=== PATIENT | female | born 1940 | race Caucasian/White ===

== ENCOUNTER 2016-12-30 15:19 | Inpatient (IN) | payer MEDICARE, BC ==
[~2016-12-30] VITALS: Ht 162.6 cm; Wt 86.8 kg
--- NOTE | ~2016-12-30 | ER ---
PATIENT'S NAME: JOE DAVE [facility] AGE: 76 Y [address] ROOM: [place] [address] LOCATION: GPCU ADMIT DATE: 12/30/2016 ER/Outpatient Report DISCHARGE DATE: FAMILY PHYSICIAN: Anita Valle MD ATTENDING PHYSICIAN: WILLIAM QUIGLEY TIME OF ARRIVAL: 1525 hours. TIME OF EVALUATION: 1525 hours. CHIEF COMPLAINT: Fall, weakness, slurred speech, chest pain. HISTORY OF PRESENT ILLNESS: The patient is a 76-year-old female who presents to the emergency department today with chief complaint of fall, weakness, slurred speech, and chest pain. She reports the slurred speech has been going on for 2-3 days. The patient denies any fevers or chills. No shortness of breath. No cough. The patient did have chest pain on the left side of her chest. There is no radiation this morning. She denies any current pain at this time. Does report pain in both of her legs and hips that radiates down. Does report some nausea. No vomiting. No diarrhea. Does have a little headache. She has had a fall 3 days ago. No fall today, no loss of consciousness, no head injury that she reports. Denies any abdominal pain. PAST MEDICAL HISTORY: Dyslipidemia, type 2 diabetes, hypertension, osteoarthritis, TIA. PAST SURGICAL HISTORY: Hysterectomy. SOCIAL HISTORY: The patient quit smoking 12 years ago. Denies any alcohol or illicit drug use. ALLERGIES: NO KNOWN DRUG ALLERGIES. MEDICATIONS: Please see list. PRIMARY CARE DOCTORS: Anita Valle MD, in [place]. PATIENT'S NAME: JOE DAVE [facility] AGE: 76 Y [address] ROOM: [place] [address] LOCATION: GPCU ADMIT DATE: 12/30/2016 ER/Outpatient Report DISCHARGE DATE: FAMILY PHYSICIAN: Anita Valle MD ATTENDING PHYSICIAN: WILLIAM QUIGLEY REVIEW OF SYSTEMS: All systems are reviewed by myself and negative with the exception of those discussed in HPI and past medical history. PHYSICAL EXAMINATION: VITAL SIGNS: Weight 88 kg. Blood pressure 139/67, pulse 80, respiratory rate 20, temperature 98.5, oxygen saturation 95% on room air. GENERAL: The patient is a 76-year-old female who appears of stated age, in no acute distress at this time. HEENT. Head is normocephalic and atraumatic. Pupils are equal, round, and reactive to light. NECK: Supple. There is no nuchal rigidity. CARDIOVASCULAR: Regular rate and rhythm. No murmurs, rubs, or gallops. LUNGS: Clear to auscultation bilaterally. No wheezes, rales, or rhonchi. ABDOMEN: Soft, nontender, and nondistended. No rebound, rigidity, or guarding. MUSCULOSKELETAL: The patient moves all 4 extremities. 5/5 muscle strength. NEUROLOGICAL: GCS 15. She is alert. She is oriented to person, somewhat to place, she does not know in which city she is, but does she know is in a hospital. She is not oriented to time or month. Downward going toes. No clonus. 2/4 reflexes. Equal sas architect strength bilaterally. No pronator drift. No facial asymmetry. Normal tongue motion. Extraocular motions are intact. SKIN: Warm and dry. LABORATORY DATA AND X-RAYS: Labs and x-rays are obtained. EKG is obtained, interpreted by myself at 1547 hours. It does show sinus rhythm with a rate of 80, normal axis, normal intervals. There does appear to be 0.[address] depression in V2, V3, V4. There is some nonspecific T-wave flattening laterally. Urinalysis shows a 1000 glucose, 25 leukocyte esterase, 30 protein, 15 ketones, otherwise unremarkable. Lactate is 1.7. CBC is unremarkable. Coags are normal. Procalcitonin is less than 0.05. ProBNP is normal. CMP is unremarkable. LFTs normal. CK is normal. CK-MB is normal. Troponin 0.069, free T4 is normal. TSH is normal. IMPRESSION: 1. Non-ST segment elevation myocardial infarction. 2. Slurred speech with history of transient ischemic attack. 3. Vgc-tmfrfis-foxveotmu diabetes mellitus. 4. Initial visit. EMERGENCY DEPARTMENT COURSE: The patient brought back to the examination room. Seen and evaluated by myself. IV is established. Laboratory analysis and imaging are obtained as PATIENT'S NAME: JOE DAVE [facility] AGE: 76 Y [address] ROOM: [facility] [place], [place] [address] [facility] AD[facility] DATE: 12/30/2016 ER/Outpatient Report DISCHARGE DATE: FAMILY PHYSICIAN: Anita Valle MD ATTENDING PHYSICIAN: WILLIAM QUIGLEY described above. The patient is given a liter of normal saline IV. The results are obtained. The patient is given aspirin as well started on heparin protocol. I have discussed the case with Dr. Quigley. He does agree to accept the patient for further evaluation, treatment, and management. DISPOSITION: The patient is admitted under the care of the Hospitalist Service in stable condition. DO BIBI PALM/modl /[id number] d: 12/30/160 t: 12/31/16 0759, OUTPATIENT REPORT
--- NOTE | ~2016-12-30 | CON ---
PATIENT'S NAME: JOE DAVE [facility] AGE: 76 Y [address] ROOM: [id number] [place], [place] [address] LOCATION: GPCU ADMIT DATE: 12/30/2016 Consultation DISCHARGE DATE: FAMILY PHYSICIAN: Anita Valle MD ATTENDING PHYSICIAN: WILLIAM REDD REFERRING PHYSICIAN: LISSET ANDINO MD This is a patient of Dr. Lucia. Dear Dr. Lucia: Thank you for asking me to see Ms Ewa who is a 76-year-old female patient who was hospitalized on the night of 30 December 2016 with fall, weakness, slurred speech, and chest discomfort. There was also a certain element of confusion which seemed to be clearing up. In the meantime, she had been complaining a lot about her low back pain and appears to have some clusters of skin lesions consistent with possibly herpes zoster. Since spring, she has had a few falls. She lives with her in [place], [place]. She was up here for shopping when she felt really bad according to her, and she was brought to the emergency room, for where she was hospitalized. 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 On directly questioning, she admits to having a few episodes of chest pains over the last few months and she states that they feel like a discomfort and ache and she is not able to give a lot more information. They seem to last only for a minute or two at the most and spontaneously resolved. She denies having any shortness of breath. She has no history of paroxysmal nocturnal dyspnea or orthopnea. Apparently, she has been in functional class II. There is no history of lightheadedness, dizziness, syncope, presyncope, palpitations, or ankle swelling. The patient has history of hypertension, type 2 diabetes, and elevated cholesterol. She quit smoking years ago and there is no family history of premature coronary artery disease. The patient denies prior history of WA or angina or nitroglycerin use. She has no history of rheumatic fever, heart murmur, heart failure, dilated or enlarged heart, or any diagnosed cardiac arrhythmias. Her EKGs enzymes and enzymes were followed after admission and she appears to have had a vgt-PP-lpoqltp elevation WA based on the troponins and the fact that she had a complaint of having some chest pain at the time of admission. She is currently oriented x2 and her history is probably reasonably accurate PATIENT'S NAME: JOE DAVE [facility] AGE: 76 Y [address] ROOM: [place] [address] LOCATION: GPCU ADMIT DATE: 12/30/2016 Consultation DISCHARGE DATE: FAMILY PHYSICIAN: Anita Valle MD ATTENDING PHYSICIAN: WILLIAM REDD at this time. MEDICATIONS: 1. Jardiance 25 mg a day. 2. Losartan/hydrochlorothiazide 50 mg every morning. 3. Amlodipine 5 mg every morning. 4. Levothyroxine 150 mcg once a day. 5. Glimepiride 4 mg b.i.d. 6. Pravastatin 80 mg at bedtime. 7. Aspirin 81 mg a day. 8. MiraLAX. 9. Colace 100 mg a day. 10. Acetaminophen. ALLERGIES: HEPARIN WHICH CAUSES HIVES. PAST MEDICAL HISTORY: 1. History of DJD. 2. TIA. 3. Hysterectomy for apparently cancer. 4. Knee surgery. SOCIAL HISTORY: The patient denies abusing alcohol. Her appetite and weight are stable. Sleep is poor. FAMILY HISTORY: No premature coronary artery disease. REVIEW OF SYSTEMS: 12-point review of systems revealed corrective lenses and DJD. PHYSICAL EXAMINATION: GENERAL: The patient is now in no acute distress. Awake, alert, oriented x2. Appropriate and cooperative. VITAL SIGNS: Blood pressure is 180/80, heart rate is in the 80s and regular, respirations 18, afebrile. HEENT: Normal. NECK: Supple with no JVD, thyromegaly, lymphadenopathy, or carotid bruit. HEART: PMI is not well located. First and second heart sounds are regular. There are no added some sounds or murmurs. CHEST: Clear to auscultation. ABDOMEN: Soft. EXTREMITIES: Reveal no edema. PATIENT'S NAME: JOE DAVE [facility] AGE: 76 Y [address] ROOM: [place] [address] LOCATION: GPCU ADMIT DATE: 12/30/2016 Consultation DISCHARGE DATE: FAMILY PHYSICIAN: Anita Valle MD ATTENDING PHYSICIAN: WILLIAM REDD SKIN: She does have the skin lesions mostly over the sacral area and to the left of it. CENTRAL NERVOUS SYSTEM: Appears to be overall intact. ASSESSMENT: A 76-year-old female patient, admitted with confusion, falls, weakness, slurred speech, and some chest pain. Her EKG showed no acute ST-T changes. However, her enzymes especially her troponin seemed to be slightly up. The possibility of lsk-NP-gfwnekv elevation WA cannot be ruled out. Given her what appears to be current herpes zoster, I would not feel comfortable doing a stress test or cardiac catheterization at this time. However this may be something where we can evaluate her coronaries with a coronary CT angiogram, if we can slow her heart beat down to about 60s. We will attempt to do that with beta blockers right now, and then once her heart rate is in the 60s, we will consider proceeding ahead with CT coronary angiography. Again, I appreciate this opportunity to participate in the care of Ms Dvae. MD DYAN JIMENEZ/kody /[id number] d: 01/01/17 1125 t: 01/02/17 1209, CONSULTATION REPORT
--- NOTE | ~2016-12-30 | ECHO ---
Transthoracic Echocardiography Report (TTE) Demographics Patient Name JOE DAVE Date of Study 12/31/2016 Patient Number [id number] Visit Number [id number] Date of 1940 Room Number [address]6329 Gender Female Number Age 76 year(s) Referring Tori Hernández MD Mortar Worker Nyasia Rivas [facility], Physician RVT Physician Interpreting Vidal Lemus[employer] Message And Delivery Service Pricer Physician Supervising Ordering [facility] Simone LEAL/MLP Physician Nurse Stress Cost Engineer Conclusions Summary The estimated left ventricular ejection fraction is 55-60%. Moderate concentric left ventricular hypertrophy. Diastolic assessment reveals Grade I diastolic dysfunction. Normal right ventricle structure and function. The left atrium is moderately dilated by LA volume index measurement. Mild tricuspid regurgitation by color Doppler. The tricuspid valve is not well visualized. Procedure Type of Study TTE procedure:2D Echocardiogram. Procedure Date Date: 12/31/2016 Start: 08:42 AM Study Location: Mobile Services Technical Quality: Adequate visualization Indications:Chest pain. Appropriate Use Criteria: 9 Patient Status: Routine Rhythm: Within normal limits HR: 75 bpm BP: 183/77 mmHg M-Mode/2D Measurements LV Diastolic Dimension: 4.55 cm LV Systolic Dimension: 2.57 cm LV Septum Diastolic: 1.49 cm LV PW Diastolic: 1.39 cm AO Root Dimension: 2 cm Cardiac Output: 7.47 l/min LA Dimension: 3.9 cm IVC Inspiration: 0.59 cm LVOT: 2.2 cm RV Base: 3.33 cm LVOT VTI: 26.2 cm RV Mid: 2.17 cm LV Stroke volume: 99.54 ml TAPSE: 1.93 cm TDI-S': 19 cm/s Doppler Measurements AV Peak Velocity: 1.48 m/s MV Peak E-Wave: 0.86 m/s AV Peak Gradient: 8.76 mmHg MV Peak A-Wave: 1.19 m/s AV Mean Gradient: 5 mmHg MV E/A Ratio: 0.73 LVOT Peak Velocity: 0.93 m/s MV P1/2t: 65 msec PV Peak Velocity: 1.01 m/s E' Septal Velocity: 0.05 m/s PV Peak Gradient: 4.08 mmHg MV E/E' Ratio: 18.9 A' Septal Velocity: 0.09 m/s Findings Left Ventricle Moderate concentric left ventricular hypertrophy. Diastolic assessment reveals Grade I diastolic dysfunction. Right Ventricle Normal right ventricle structure and function. Left Atrium The left atrium is moderately dilated by LA volume index measurement. Right Atrium Normal right atrial size. Mitral Valve Mild mitral regurgitation by color Doppler. Aortic Valve The aortic valve is mildly sclerotic. Tricuspid Valve Mild tricuspid regurgitation by color Doppler. The tricuspid valve is not well visualized. Pulmonic Valve The pulmonic valve is not well visualized. Miscellaneous Visualized portions of the aortic root and ascending aorta appear normal in size. Pleural Effusion No evidence of pleural effusion. Signature dtt: PASCUAL BRODY dtd: 12/31/16 0842 Physician Self Edit
--- NOTE | ~2016-12-30 | OR ---
PATIENT'S NAME: JOE DAVE [facility] AGE: 76 Y [address] ROOM: [place] [address] LOCATION: GPCU ADMIT DATE: 12/30/2016 OR/Procedure Report DISCHARGE DATE: FAMILY PHYSICIAN: Anita Valle MD ATTENDING PHYSICIAN: WILLIAM REDD SURGEON: Argelia Gomez MD TURNAROUND ENGINEER: DATE OF PROCEDURE: 01/01/2017 PROCEDURE PERFORMED: Coronary CT angiography. INDICATION: 1. Atypical chest pain. 2. Elevated troponins. 3. The patient has now shingles. I did not want her to have a stress test or any invasive test at this point, so a coronary CT angiogram was performed to look and see if she has any significant left main disease or proximal coronary artery disease. DESCRIPTION OF PROCEDURE: Coronary artery calcium scoring with a 64-slice coronary CT scanner, coronary artery calcium scoring was done per protocol. The calcium scoring was done according to standardized protocol using a 3D workstation. Left main 94, LAD 455, left circumflex 607, RCA 1109, ramus intermedius 8, total 2273. Coronary artery angiography was performed utilizing the standardized protocol. The coronaries were evaluated using a 3D workstation. 1. Left main, ostial 25%. 2. LAD proximally has about a 50% to 70% lesion. Mid LAD has 70% lesion. Diagonal has 70% lesion. Left circumflex shows moderate diffuse disease in its midportion, has 80% to 90% lesion. 3. Mid right coronary artery has 70% lesion and distally there is an 80% lesion. CONCLUSION: All three vessels show at least moderate diffuse disease. ARGELIA GOMEZ MD AMK/modl PATIENT'S NAME: JOE DAVE [facility] AGE: 76 Y [address] ROOM: [place] [address] LOCATION: GPCU ADMIT DATE: 12/30/2016 OR/Procedure Report DISCHARGE DATE: FAMILY PHYSICIAN: Anita Valle MD ATTENDING PHYSICIAN: WILLIAM REDD /[id number] d: 01/01/17 2259 t: 01/02/17 1211, OPERATIVE SUMMARY
--- NOTE | ~2016-12-30 | CON ---
PATIENT'S NAME: JOE DAVE [facility] AGE: 76 Y [address] ROOM: [address] [place], [place] [address] LOCATION: GPCU ADMIT DATE: 12/30/2016 Consultation DISCHARGE DATE: FAMILY PHYSICIAN: Anita Valle MD ATTENDING PHYSICIAN: WILLIAM REDD DATE OF CONSULTATION: 12/31/2016 REFERRING PHYSICIAN: LISSET ANDINO MD TIME: 17:05 p.m. CHIEF COMPLAINT: Fall. HISTORY OF PRESENT ILLNESS: This is a 76-year-old female who presents to the hospital with a variety of symptoms. Her prior medical history includes type 2 diabetes, hypertension, and a left posterior frontal stroke which occurred in June of 2016. She was in [place] at the [facility], having a hysterectomy for stage I endometrial carcinoma, and after surgery, she could not use her right arm. She was worked up for stroke at that time. Her stroke recovery has been quite well and she has been able to ambulate without any assistance except when she gets tired and then she noticed some right arm ataxia and has to use a cane. In further questioning of her family, but by the end of the day, she does have some word finding issues and does not complete her sentences. During the week of December 23, she had a fall in the garden and had to drag herself over to the fence to stand up. She has nonspecific complaints of back pain and went to her local doctor on December 28 and he diagnosed her as having sciatica and sent her home. She again fell and was having trouble with confusion, so she presented to her local hospital who transferred her here for further definitive care. According to the , the patient states she was having pain when she was standing up. She has denied any dizziness, lightheadedness, shortness of breath, diaphoresis, nausea, vomiting, diarrhea, or constipation. She has had no fever or chills, nor has she had any ill contacts. Last night, the patient woke up confused and slightly combative, so an MRI was obtained. In order to get this MRI, there was 2 mg of Ativan given. Haldol was ordered, but the patient cleared somewhat, so they did not give it. Today, we are seeing her to evaluate for the weakness and also her confusion. PAST MEDICAL HISTORY: 1. Left posterior frontal CVA in June 2016. 2. Diabetes type 2. 3. Hypertension. PATIENT'S NAME: JOE DAVE [facility] AGE: 76 Y [address] ROOM: [address] [place], [place] [address] LOCATION: GPCU ADMIT DATE: 12/30/2016 Consultation DISCHARGE DATE: FAMILY PHYSICIAN: Anita Valle MD ATTENDING PHYSICIAN: WILLIAM REDD FAMILY HISTORY: The patient has a history of diabetes in her mother. SOCIAL HISTORY: The patient has a remote smoking history, but quit over 25 years ago. She does not use alcohol or drugs. REVIEW OF SYSTEMS: All systems were reviewed and are negative except as those described in the HPI. PHYSICAL EXAMINATION: VITAL SIGNS: Blood pressure is 139/64, pulse 82, respiratory rate 18, temperature 98.2. She is 95% on room air. GENERAL: The patient is awake and oriented x2. She is in no acute distress. She is well nourished, and well groomed. HEENT: Normocephalic and atraumatic. SKIN: No rashes noted. CHEST: Clear to auscultation bilaterally. HEART: S1 and S2. NEURO: Difficult to examine because of the patient's lack of wanting to follow commands. She knows her name and how long she has been and everyone's name in the room, but she cannot tell me the year. Following commands such as raising of thumb are very difficult for her, this may be due to somewhat to her lack of hearing, but she is able to follow commands with prompting. Her power is 5/5 uppers and lowers. She has good dorsiflexion and plantar flexion strength. Her muscle tone and bulk are excellent. I did see her walk with a walker and it is a 2-assist job. No radiculopathy was elicited with straight leg raise. Deep tendon reflexes are 2+. DIAGNOSTICS: An MRI that was completed last night is definitely altered by motion. However, there is no evidence of any acute intracranial abnormality. There is the old left posterior frontal stroke. Her initial urinalysis did show some hyaline casts, and a leukocyte count of 25. Of course, there was glucose in it but the patient is on Jardiance. Ketones of 15 mg/dL. We are waiting for the UA to be repeated for catheterization. Her white count is 7.7, with neutrophils making up 79% of that. Hemoglobin is 15.2 and hematocrit 43.9. SUMMARY: In summary, this is a 76-year-old female who presents with confusion and complaints of leg weakness and pain. 1. Acute encephalopathy. The encephalopathy could be certainly multifactorial. The patient did have a temp of 102.5 last night. She PATIENT'S NAME: JOE DAVE [facility] AGE: 76 Y [address] ROOM: [address] [place] [address] [facility]: 12/30/2016 Consultation DISCHARGE DATE: FAMILY PHYSICIAN: Anita Valle MD ATTENDING PHYSICIAN: WILLIAM REDD also could be demonstrating recrudescence of her stroke and that would certainly make her more confused and have difficulty with her word finding. The MRI thankfully is negative for any new processes. 2. Acute delirium. The patient awoke last night, even more confused. That seems to be reversing somewhat now. She is still sleepy from the 2 mg of Ativan. We would recommend serial exams to follow up with this. 3. Pain. Difficult to elicit exactly where her pain is. Since she has had falls and is on the Jardiance, would recommend imaging to check for a possible compression fractures. Thank you for the opportunity to participate in this patient's care. If you have any questions, please notify us. NIKKI UMAÑA APRN FOR LISSET ANDINO MD PP/modl /[id number] d: 01/01/17 1403 t: 01/22/17 1620, CONSULTATION REPORT
--- NOTE | ~2016-12-30 | DS ---
PATIENT'S NAME: JOE DAVE [facility] AGE: 76 Y [address] ROOM: [facility] [place] [address] LOCATION: GPCU ADMIT DATE: 12/30/2016 Discharge Summary DISCHARGE DATE: 01/02/2017 FAMILY PHYSICIAN: Anita Valle MD ATTENDING PHYSICIAN: Simone Quigley PRINCIPAL DISCHARGE DIAGNOSIS: Non ST-elevation myocardial infarction. SECONDARY DIAGNOSES: 1. Acute encephalopathy, multifactorial probably related to medication, hypertension and possibly Herpes zoster infection. 2. Hypertension, severe. 3. Cerebrovascular disease. 4. Herpes zoster. She developed lesions from a mild erythema, which was noted on the morning following admission and developed into herpetic rash within 24 hours of admission. 5. Diabetes mellitus, type 2, good control with A1c of 7.7. 6. Coronary artery disease, diffuse. 7. Hypothyroidism. 8. Hypertriglyceridemia, on statin. 9. Mild diabetic peripheral neuropathy. CONSULTATIONS: Cardiology, Dr. Bright on 12/31/2016. RADIOGRAPHIC STUDIES: CT angiogram on 01/01/2017. Please see Dr. Bright's cardiovascular report, which is pending at the time of my dictation. Echocardiogram. Brief summary of findings showed left ventricular ejection fraction 55% to 60%, grade 1 diastolic dysfunction, mildly dilated left atrium. MRI of the brain showed [id number] chronic small vessel ischemic changes, moderate atrophy, old small left posterofrontal lacunar infarction. BRIEF SUMMARY: Ms. Dave is a 76-year-old female who was doing well until a few days prior to admission when she started having some falls and increased weakness in her lower extremity. She was complaining of some generalized pain in her lower extremities. Her was concerned and thought that he would bring her to [place] for thorough evaluation. When she arrived here, she also complained of some chest tightness and discomfort. Her troponins were noted to be slightly elevated at that time, she was admitted for observation initially. She developed some acute confusion. We placed her on stroke protocol. The PATIENT'S NAME: JOE DAVE [facility] AGE: 76 Y [address] ROOM: [facility] [place] [address] LOCATION: GPCU ADMIT DATE: 12/30/2016 Discharge Summary DISCHARGE DATE: 01/02/2017 FAMILY PHYSICIAN: Anita Valle MD ATTENDING PHYSICIAN: Simone Quigley imaging was negative as above. She did get some medications, which probably worsened acute confusional state, but her mental status cleared once these medications were held. Troponin continued to rise, although only marginally and she was placed on anticoagulation, aspirin, and Dr. Bright was consulted. At the same time, a mild erythematous rash on her sacrum which was noted by the nurse on the morning of the developed into vesicular rash in a dermatomal distribution and she was started on Valtrex on the evening of the . The patient subsequently as her mental status cleared, was completely unaware of the rash and the pain that she had there was vague and not necessarily burning or typical of zoster. She will complete a seven-day course of valacyclovir for this. Further imaging to evaluate her heart disease when catheterization was deferred because of herpes zoster shows diffuse coronary artery disease. Dr. Bright has opted for medical management in the next 10 days and she will come back for cardiac catheterization on January 14. Her blood pressure was a significant issue and she is on multiple medications at admission but we added beta ritika and we will increase the dose of her losartan with hydrochlorothiazide. She is quite well appearing today. She and her agree with discharge plan. At the time of discharge, her vital signs are temperature 98.2, pulse 85, respirations 18, blood pressure 119/56, her oxygen saturation is 94% on room air. INSTRUCTIONS AT DISCHARGE: [place] [employer], [place] [employer] diets, low carb. Activity: As tolerated. Followup: Follow up should be with her PCP by Saturday January 07, 2017. Dr. Bright in 2 weeks. She should have a CBC and complete metabolic panel prior to the appointment. She should have outpatient therapy with PT/OT and speech. MEDICATIONS AT THE TIME OF DISCHARGE: 1. Amlodipine 5 mg p.o. every night. 2. Aspirin 81 mg p.o. every day. 3. Atorvastatin 40 mg every night. 4. We will replace pravastatin. 5. Plavix 75 mg p.o. daily. PATIENT'S NAME: JOE DAVE [facility] AGE: 76 Y [address] ROOM: [address] [address] [facility] ADMIT DATE: 12/30/2016 Discharge Summary DISCHARGE DATE: 01/02/2017 FAMILY PHYSICIAN: Anita Valle MD ATTENDING PHYSICIAN: Simone Quigley 6. Gabapentin 100 mg p.o. t.i.d. as needed for herpetic neuralgia. 7. Levothyroxine 150 mcg p.o. daily. 8. Losartan/hydrochlorothiazide 50/12.5 two tabs every morning. 9. Valacyclovir 1 g t.i.d. to continue through a dose on 01/07. 10. Tylenol p.r.n. She is instructed to hold Jardiance indefinitely, hold metformin through 01/05 and she can resume glimepiride 4 mg p.o. b.i.d. before meals. MiraLax daily, Colace daily as needed, Lopressor 25 mg p.o. b.i.d. CONDITION AT DISCHARGE: Good. SHANNON HILARIO MD LM/modl /[id number] CC: MD Anita Lock MD d: 01/03/17 0036 t: 01/04/17 1858, DISCHARGE SUMMARY
--- NOTE | ~2016-12-30 | CON ---
PATIENT'S NAME: JOE DAVE [facility] AGE: 76 Y [address] ROOM: [id number] [place] [id number] LOCATION: GPCU ADMIT DATE: 12/30/2016 Consultation DISCHARGE DATE: FAMILY PHYSICIAN: Anita Valle MD ATTENDING PHYSICIAN: WILLIAM REDD REFERRING PHYSICIAN: LISSET ANDINO MD Consult for Dr. Lucia. HISTORY OF PRESENT ILLNESS: This pleasant, but confused, 76-year-old lady who is referred for rehab evaluation was admitted on 12/30 with weakness in bilateral lower extremities, a little more affected to the right side, with confusion of recent few days. 1. Has extensive medical history of falling. 2. 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 3. Also, history of diabetes type 2. 4. Hypertension. 5. She also is now presenting herself as not very tolerant to activity. Denied any shortness of breath, no chest pain, no tachycardia; however, she is reportedly falling and so far has not hit her head or hurt herself seriously. She is not having any dizziness, no lightheadedness, no shortness of breath, no diaphoresis, no nausea or vomiting. No cough, fever, and palpitation. MEDICAL HISTORY: 1. Questionable CVA with right-sided minimal weakness, residual. 2. Diabetes type 2. 3. Hypertension. 4. Remote history of smoking about 25 years ago. PHYSICAL EXAMINATION: She is now alert, not oriented to place, person, and time. She has no facial droop, no visual neglect. Tongue and soft palate are moving symmetrical. She can swallow without difficulty. She can move all four. Cranial nerves 2 through 12 are within normal limits. Deep tendons reflexes are present and equal throughout. So far, she can remember easily old issues like, for example, her address but she cannot remember who is the president, where is she now, or what is the date and what is the time. She is however able to be re-directed, but soon she forgets. MEDICATIONS: She is on: 1. Lovenox. 2. Aggrenox. 3. Insulin NovoLog, mild scale. 4. Tylenol. PATIENT'S NAME: JOE DAVE [facility] AGE: 76 Y [address] ROOM: [id number] [place], [place] [address] LOCATION: GPCU ADMIT DATE: 12/30/2016 Consultation DISCHARGE DATE: FAMILY PHYSICIAN: Anita Valle MD ATTENDING PHYSICIAN: WILLIAM REDD 5. Hyzaar. 6. Aspirin. 7. Norvasc. 8. Protonix. 9. Levothyroxine. 10. Lipitor. 11. Pravachol. 12. MiraLAX. 13. Colace. 14. NaCl 0.9%. 15. Catapres. 16. Glucagon. 17. Glucose. 18. Dextrose. 19. KCl. 20. Metformin. 21. Glimepiride. 22. Elavil. 23. Haldol. PLAN: Put on intensive PT, OT, Speech and we will watch. If she cannot be discharged to home and able to be managed with her , we will re- evaluate for rehab admission. So far, she can move bilateral upper and lower extremities fairly well. However, she is unsteady and she is fearful of falling. We will continue to follow alongside with you. Thank you for this referral. MD RODERICK DEE/kody /[id number] d: 12/31/16 2103 t: 01/01/17 1129, CONSULTATION REPORT
--- NOTE | ~2016-12-30 | HP ---
PATIENT'S NAME: JOE DAVE [facility] AGE: 76 Y [address] ROOM: [place] [address] LOCATION: GPCU ADMIT DATE: 12/30/2016 History & Physical DISCHARGE DATE: FAMILY PHYSICIAN: Anita Valle MD ATTENDING PHYSICIAN: WILLIAM REDD DATE OF SERVICE: CHIEF COMPLAINT: Chest pain. HISTORY OF PRESENT ILLNESS: This is a 76-year-old female with a history of recent TIA and stroke with residual minimal right-sided weakness, type 2 diabetes, hypertension, who presents with complaints of worsening lower extremity weakness, physical deconditioning leading to a few falls over the past few days as well as some chest tightness and discomfort. The patient tells me that she has had hysterectomy done in June of this year for stage I endometrial carcinoma, and shortly following that she had a TIA versus stroke during that time but has done well in physical therapy and medications. The patient, however, over the last week or so describes overall physical deconditioning and worsening pain in her bilateral lower extremities, and it is preventing her from maintaining balance and causing her falls. The patient also complains of a 1- day history of chest discomfort. Does not particularly describe chest pain to be related to exertion and nothing in particular relieves it. During my evaluation, the patient was chest pain free. Otherwise, the patient denies any dizziness, lightheadedness, shortness of breath, diaphoresis, nausea, vomiting, diarrhea, or constipation. Also no fever or chills during this time. PAST MEDICAL HISTORY: 1. CVA. 2. Diabetes type 2. 3. Hypertension. FAMILY HISTORY: The patient has a history of diabetes in her mother. SOCIAL HISTORY: The patient has a remote history of smoking but has quit over 25 years. No history of alcohol or drug use. REVIEW OF SYSTEMS: All systems have been reviewed and were all negative except as described in the HPI. PATIENT'S NAME: JOE DAVE [facility] AGE: 76 Y [address] ROOM: [place] [address] LOCATION: GPCU ADMIT DATE: 12/30/2016 History & Physical DISCHARGE DATE: FAMILY PHYSICIAN: Anita Valle MD ATTENDING PHYSICIAN: WILLIAM REDD PHYSICAL EXAMINATION: VITAL SIGNS: Blood pressure 139/67 initially but upon my evaluation was 198/95; pulse 80; respiratory rate 20; temperature 98; 95% on room air. GENERAL: The patient is awake, alert, oriented x3, in no acute distress. HEENT: There are dry mucosal membranes but no scleral icterus, conjunctival pallor noted. SKIN: Without rash or lesions. CHEST: Clear to auscultation bilaterally. HEART: S1, S2. Regular rate and rhythm. ABDOMEN: Soft, nontender, nondistended with positive bowel sounds. MUSCULOSKELETAL: No joint tenderness, effusion, or erythema noted. NEURO: 3/5 strength on the right upper and lower extremities but good muscular tone. LABORATORY DATA: Troponin initial 0.06. EKG with nonspecific ST-T wave changes. ASSESSMENT AND PLAN: 1. Atypical chest pain, admitted for acute coronary syndrome rule out. The patient has an intermediate to high risk factors noting her history of diabetes and stroke. I will continue to trend troponins a few more times. If this continues to bump or has ongoing chest symptoms, we will consider starting her on a heparin drip. In the meantime, we will give her aspirin, and we will do 2D echo in the morning and observe on tele. 2. Type 2 diabetes. We will continue her home medications in addition to sliding scale insulin. 3. Hypertensive urgency. We will resume all of her blood pressure medicines and use p.r.n. clonidine for systolic greater than 180. 4. Physical deconditioning. In relation to her fairly recent stroke, has residual right lower extremity weakness, we will have PT, OT evaluate and see the patient. 5. Neuropathic pain related to her stroke as well as diabetic neuropathy. I will start her on amitriptyline 25 mg nightly, and it can be up titrated as needed with outpatient followup. MD PEYTON SPAIN/kody /[id number] D: 038 T: 310 HISTORY & PHYSICAL
[2016-12-30 15:59] LABS: BILIRUBIN URINE NEGATIVE (NEGATIVE); BLOOD URINE NEGATIVE /UL (NEGATIVE); COLOR URINE YELLOW (YELLOW); GLUCOSE URINE 1000 mg/dL (NEGATIVE); KETONE URINE 15 mg/dL (NEGATIVE); LEUKOCYTES URINE 25 /UL (NEGATIVE); NITRITE URINE NEGATIVE (NEGATIVE); PROTEIN URINE 30 mg/dL (NEGATIVE); TURBIDITY URINE CLEAR (CLEAR); UROBILINOGEN URINE 1 mg/dL (NORMAL)
[2016-12-30 16:04] LABS: RBC URINE NEGATIVE #/HPF (NEGATIVE); WBC URINE 0-2 #/HPF (NEGATIVE)
[2016-12-30 16:05] LABS: BACTERIA URINE NEGATIVE (NEGATIVE); MUCUS URINE 1+ (NEGATIVE)
[2016-12-30 16:18] LABS: BASOPHIL # 0.1 K/uL (0.0-0.2); BASOPHIL % 1.1 %; EOSINOPHIL # 0.1 K/uL (0.0-0.5); HEMATOCRIT 43.8 % (33.0-46.0); HEMOGLOBIN 15.3 g/dL (10.0-15.0); IMMATURE GRANULOCYTE % 0.3 %; LYMPHOCYTE # 1.1 K/uL (0.8-4.0); LYMPHOCYTE % 16.1 %; MCH 31.4 pg (27.0-34.0); MCHC 34.9 gm/dL (32.0-36.5); MCV 89.9 fl (83.0-98.0); MONOCYTE # 0.6 K/uL (0.0-1.0); MPV 10.5 fl (9.4-12.4); NEUTROPHIL # (ANC) 5.1 K/uL (1.8-7.8); NEUTROPHIL % 72.5 %; NRBC % 0 /100WBC (0-0.00); PLATELET COUNT 164 K/uL (150-450); RBC 4.87 M/uL (3.50-5.50); RDW-CV 12.8 % (11.9-14.6)
[2016-12-30 16:26] LABS: INR - (THERAPEUTIC) 1.02 (0.92-1.07); PROTIME 10.7 SECONDS (9.8-11.4); PTT 23 SECONDS (25-32)
[2016-12-30 16:38] LABS: ALBUMIN 3.7 gm/dL (3.5-5.0); ANION GAP 14.7 (10.0-19.0); CALCIUM 9.2 mg/dL (8.5-10.5); POTASSIUM 3.7 mMol/L (3.7-5.1); TOTAL BILIRUBIN 0.9 mg/dL (0.0-1.5)
[2016-12-30] MEDS ORDERED: JARDIANCE25 MG PO (19:03)
[2016-12-30] MEDS ORDERED: LOSARTAN-HCTZ1 EAC2 PO (19:05)
[2016-12-30] MEDS ORDERED: NORVASC5 MG PO (19:05)
[2016-12-30] MEDS ORDERED: LEVOTHROID (S150 MCG PO (19:06)
[2016-12-30] MEDS ORDERED: AMARYL4 MG PO (19:06)
[2016-12-30] MEDS ORDERED: GLUCOPHAGE XR500 M1 PO (19:07)
[2016-12-30] MEDS ORDERED: PRAVACHOL80 MG PO (19:08)
[2016-12-30] MEDS ORDERED: ASPIRIN LO-DOSE81 MG PO (19:08)
[2016-12-30] MEDS ORDERED: MIRALAX17 GM PO (19:18)
[2016-12-30] MEDS ORDERED: TYLENOL ARTHRI650 MG PO (19:19)
[2016-12-30] MEDS ORDERED: COLACE100 MG PO (19:19)
[2016-12-31 03:40] LABS: BASOPHIL # 0.1 K/uL (0.0-0.2); BASOPHIL % 0.6 %; EOSINOPHIL # 0.1 K/uL (0.0-0.5); EOSINOPHIL % 0.6 %; HEMATOCRIT 43.9 % (33.0-46.0); HEMOGLOBIN 15.2 g/dL (10.0-15.0); IMMATURE GRANULOCYTE % 0.4 %; LYMPHOCYTE # 0.8 K/uL (0.8-4.0); LYMPHOCYTE % 10.1 %; MCH 31.1 pg (27.0-34.0); MCHC 34.6 gm/dL (32.0-36.5); MCV 89.8 fl (83.0-98.0); MONOCYTE # 0.7 K/uL (0.0-1.0); MONOCYTE % 9.3 %; MPV 10.5 fl (9.4-12.4); NEUTROPHIL # (ANC) 6.1 K/uL (1.8-7.8); NRBC % 0 /100WBC (0-0.00); PLATELET COUNT 143 K/uL (150-450); RBC 4.89 M/uL (3.50-5.50); RDW-CV 12.6 % (11.9-14.6); WBC 7.7 K/uL (4.0-11.0)
[2016-12-31 03:54] LABS: ANION GAP 16.6 (10.0-19.0); CALCIUM 9.1 mg/dL (8.5-10.5); CREATININE 0.8 mg/dL (0.5-1.1); POTASSIUM 3.6 mMol/L (3.7-5.1)
[2016-12-31 12:48] LABS: BILIRUBIN URINE NEGATIVE (NEGATIVE); BLOOD URINE 10 /UL (NEGATIVE); COLOR URINE YELLOW (YELLOW); GLUCOSE URINE 1000 mg/dL (NEGATIVE); KETONE URINE 150 mg/dL (NEGATIVE); LEUKOCYTES URINE NEGATIVE /UL (NEGATIVE); NITRITE URINE NEGATIVE (NEGATIVE); PROTEIN URINE 30 mg/dL (NEGATIVE); TURBIDITY URINE CLEAR (CLEAR); UROBILINOGEN URINE NORMAL (NORMAL)
[2016-12-31 12:54] LABS: BACTERIA URINE NEGATIVE (NEGATIVE); EPITHELIAL URINE 0-2 #/HPF (NEGATIVE); MUCUS URINE 1+ (NEGATIVE); RBC URINE 0-2 #/HPF (NEGATIVE); WBC URINE 0-2 #/HPF (NEGATIVE); YEAST URINE FEW (NEGATIVE)
[2016-12-31 12:55] LABS: AMORPHOUS URINE 2+ (NEGATIVE)
[2017-01-01 04:10] LABS: BASOPHIL # 0.1 K/uL (0.0-0.2); BASOPHIL % 0.7 %; EOSINOPHIL # 0.1 K/uL (0.0-0.5); EOSINOPHIL % 0.6 %; HEMATOCRIT 45.6 % (33.0-46.0); HEMOGLOBIN 15.9 g/dL (10.0-15.0); IMMATURE GRANULOCYTE % 0.3 %; LYMPHOCYTE # 1.1 K/uL (0.8-4.0); LYMPHOCYTE % 12.1 %; MCH 31.4 pg (27.0-34.0); MCHC 34.9 gm/dL (32.0-36.5); MCV 90.1 fl (83.0-98.0); MONOCYTE # 0.7 K/uL (0.0-1.0); MONOCYTE % 7.7 %; MPV 10.7 fl (9.4-12.4); NEUTROPHIL % 78.6 %; NRBC % 0 /100WBC (0-0.00); PLATELET COUNT 168 K/uL (150-450); RBC 5.06 M/uL (3.50-5.50); RDW-CV 12.6 % (11.9-14.6); WBC 8.8 K/uL (4.0-11.0)
[2017-01-01 04:38] LABS: ALBUMIN 3.9 gm/dL (3.5-5.0); ANION GAP 14.5 (10.0-19.0); CREATININE 0.9 mg/dL (0.5-1.1); POTASSIUM 3.5 mMol/L (3.7-5.1)
[2017-01-02] MEDS ORDERED: LIPITOR40 MG PO (10:14)
[2017-01-02] MEDS ORDERED: PLAVIX75 MG PO (10:15)
[2017-01-02] MEDS ORDERED: NEURONTIN100 MG PO (10:16)
[2017-01-02] MEDS ORDERED: VALTREX1000 MG PO (10:20)
[2017-01-02] MEDS ORDERED: HYZAAR 50-12.51 EACH PO (10:20)
[2017-01-02] MEDS ORDERED: LOPRESSOR25 MG PO (12:03)
== END 2017-01-02 13:50 | disposition disaster alternative care site (69) | DRG 280 ==
LOC: GACC 15:19 → GPCU 18:11
PROVIDERS: Emergency Medicine; Internal Medicine; ADMIT Internal Medicine
PROC: B246ZZZ Ultrasonography of Right and Left Heart (ICD-10-PCS; principal; 2016-12-31)
PROC: B2111ZZ Fluoroscopy of Multiple Coronary Arteries using Low Osmolar Contrast (ICD-10-PCS; 2017-01-01)
DX: I21.4 Non-ST elevation (NSTEMI) myocardial infarction (principal); G93.40 Encephalopathy, unspecified; I63.9 Cerebral infarction, unspecified; G81.91 Hemiplegia, unspecified affecting right dominant side; E11.40 Type 2 diabetes mellitus with diabetic neuropathy, unspecified; B02.9 Zoster without complications; I10 Essential (primary) hypertension; I16.0 Hypertensive urgency; M79.2 Neuralgia and neuritis, unspecified; Z91.81 History of falling; E78.1 Pure hyperglyceridemia; Z87.891 Personal history of nicotine dependence; T50.905A Adverse effect of unspecified drugs, medicaments and biological substances, initial encounter; Z79.4 Long term (current) use of insulin; Z90.710 Acquired absence of both cervix and uterus; L53.9 Erythematous condition, unspecified
CPT/HCPCS: A9270; C9113; J1650; J2060; J2270; J3480; J7030; J7040; J7050; Q9967

== ENCOUNTER 2017-01-09 10:33 | Inpatient (IN) | payer MEDICARE, BC ==
[~2017-01-09] VITALS: Ht 165.1 cm; Wt 87.7 kg
--- NOTE | ~2017-01-09 | HP ---
PATIENT'S NAME: JOE DAVE [facility] AGE: 76 Y [address] ROOM: [address] [address] LOCATION: GICU ADMIT DATE: 01/09/2017 History & Physical DISCHARGE DATE: FAMILY PHYSICIAN: Anita Valle MD ATTENDING PHYSICIAN: LISSET RAGSDALE DATE OF SERVICE: 01/09/2017 CHIEF COMPLAINT: Unresponsive, intubated, transferred from [place], [place]. HISTORY OF PRESENT ILLNESS: This is a 76-year-old female, recently admitted to [facility] for NSTEMI, also in the setting of a recent CVA with minimal right-sided weakness, discharge with plans for followup left heart catheterization as an outpatient due to the incidental discovery of shingles during stay. The patient was discharged on aspirin and Plavix. Also of note, the patient has had recent occasional falls and difficulty with ambulation secondary to this recent ischemic CVA. I received a call this morning from [place], [place] as the patient was found down, presented unresponsive, initially was maintaining oral airway, and as part of the workup, plan to pursue CT of the head was arranged. However, the patient was unable to complete the scan as she began to vomit and subsequently lost her airway. The patient was intubated and transfer call was made for further ongoing cares, at that time, without diagnosis. Request was made to proceed with CT scan prior to transfer. Shortly after transfer call I was notified that CT scan showed a large left-sided intraparenchymal hemorrhage. The patient was noted to have a GCS of 3 and was intubated prior to transfer as mentioned above. Upon notification of intracranial bleed, I discussed the case with Dr. Harmon and images were received and reviewed from outside showing this large intracranial bleed. This was felt to be consistent with a very poor prognosis. Mannitol 1 g/kg was ordered just prior to transfer. The patient was maintained intubated and Page catheter was placed for transport. Of note, patient's initial blood pressure on arrival to [place], [place] was 249/105, efforts to lower this included labetalol and hydralazine and pressure upon arrival here is 163/55. The patient is unresponsive and unable to provide further history in any form. The family has been notified of the patient's status and poor prognosis and is making the trip up from [place], [place]. Remainder of history filled in largely by chart review. MEDICAL HISTORY: 1. Coronary artery disease. 2. CVA with minimal right-sided weakness. PATIENT'S NAME: JOE DAVE [facility] AGE: 76 Y [address] ROOM: [place] [address] LOCATION: GICU ADMIT DATE: 01/09/2017 History & Physical DISCHARGE DATE: FAMILY PHYSICIAN: Anita Valle MD ATTENDING PHYSICIAN: LISSET RAGSDALE 3. Shingles. 4. Diabetes mellitus type 2. 5. Hyperlipidemia. 6. Essential hypertension. 7. Hypothyroidism. 8. Diabetic neuropathy. SURGICAL HISTORY: Notable for recent hysterectomy in June for stage I endometrial cancer. FAMILY HISTORY: Mom with diabetes mellitus, again per chart. SOCIAL HISTORY: Remote smoking history. No alcohol or drug use noted. ALLERGIES: NONE KNOWN AT THIS TIME. AT HOME MEDICATIONS: 1. Amlodipine 5 mg. 2. Aspirin 81 mg. 3. Plavix 75 mg. 4. Pravastatin. 5. Gabapentin. 6. Levothyroxine. 7. Losartan/hydrochlorothiazide. 8. Valacyclovir. 9. Tylenol. 10. Metformin. 11. Glimepiride. 12. Lopressor 25 b.i.d. REVIEW OF SYSTEMS: Attempted to be obtained from outside records as well as per patient, which is unsuccessful and unable to be obtained at this time due to patient's factors. PHYSICAL EXAMINATION: VITAL SIGNS: On arrival here, the patient is afebrile, pulse 77, blood pressure 163/55, with respirations at a set rate of 13, ventilator set at volume assist control with rate 13, PEEP of 5, 50% FiO2, and tidal volume of 500 mL. GENERAL: The patient is lying on cot of the emergency room, unresponsive, intubated, unable to participate in exam. PATIENT'S NAME: JOE DAVE [facility] AGE: 76 Y [address] ROOM: [place] [address] LOCATION: GICU ADMIT DATE: 01/09/2017 History & Physical DISCHARGE DATE: FAMILY PHYSICIAN: Anita Valle MD ATTENDING PHYSICIAN: LISSET RAGSDALE HEAD: Normocephalic, atraumatic externally. Pupils are fixed, nondilated, no conjunctival injection or erythema appreciated. Mouth intubated. Moist mucous membranes. CARDIOVASCULAR: Heart is regular rate and rhythm. No murmurs appreciated. RESPIRATIONS: Mechanically ventilated dependent without acute distress, saturating well on 50% FiO2. ABDOMEN: No grimace to palpation. Soft and nondistended with hypoactive bowel sounds. EXTREMITIES: Show no edema. NEUROLOGIC: GCS is approximately 3 at this time. The patient with fixed pupils. No obvious posturing on exam though only response elicited was minimal withdrawal to pain on left lower extremity. LAB AND IMAGING: Currently is being obtained from outside and reviewed, though primary notable finding is large intraparenchymal bleed on the left side. ASSESSMENT: 1. Unresponsiveness secondary to large intraparenchymal hemorrhage on the left. 2. Respiratory arrest with inability to protect airway. 3. Hypertensive emergency. 4. Recent non-ST elevation myocardial infarction on aspirin and Plavix. PLAN: The patient discussed with Dr. Hamron and after thorough review of images and evaluation of the patient upon arrival, given the degree of bleeding noted as well as recent history of aspirin and Plavix use, the patient is not a surgical candidate currently. This was discussed by Dr. Harmon with the family at length, who are currently en route from [place], [place] via car. Tentatively, the plan at this point will be to maintain current respiratory support with ventilator at current settings and move patient to the ICU, awaiting family arrival. Per discussion, family is aware of the prognosis and will likely plan to pursue comfort measures only with compassionate extubation upon arrival. We will hold all of her home medications including most notably the aspirin and Plavix and maintain n.p.o. status. Appreciate Dr. Harmon's involvement and we will continue to attempt to control blood pressure with nicardipine drip. Target of SBP less than 200. The patient is DNR after discussion with family. I spent 32 minutes of time reviewing records and in [id number] evaluation of the patient. PATIENT'S NAME: JOE DAVE [facility] AGE: 76 Y [address] ROOM: [place] [address] LOCATION: [facility] ADMIT DATE: 01/09/2017 History & Physical DISCHARGE DATE: FAMILY PHYSICIAN: Anita Valle MD ATTENDING PHYSICIAN: LISSET RAGSDALE LISSET RAGSDALE MD JDS/modl /[id number] D: [id number] T: [id number] HISTORY & PHYSICAL
--- NOTE | ~2017-01-09 | DS ---
PATIENT'S NAME: JOE DAVE [facility] AGE: 76 Y [address] ROOM: [id number] [place], [place] [address] LOCATION: GICU ADMIT DATE: 01/09/2017 Discharge Summary DISCHARGE DATE: 01/10/2017 FAMILY PHYSICIAN: Anita Valle MD ATTENDING PHYSICIAN: Jadon Longo SUMMARY: DATE OF : January 10, 2017. FINAL DIAGNOSES: 1. Large left intraparenchymal hemorrhage. 2. Unresponsive. 3. Respiratory arrest with intubation. 4. Hypertensive emergency. LAB AND X-RAY: Will be discussed in the body of the summary. HOSPITAL COURSE: The patient was transferred here to [facility] after presenting to the [facility]. The last time that she was normal was 3:30 the morning of admission. She was then found later in the morning by her unresponsive. She was taken to the [facility]. At that time, she had an emesis and was intubated. A CT scan revealed a large intracranial hemorrhage. The patient was shifted to [place] for higher level of care. She was seen in the emergency room due to hypertension. She was started on a nicardipine drip. She was seen by the hospitalist program and Dr. Harmon did see her as well. At that time, Dr. Harmon had a very long discussion with the family regarding the poor prognosis. At that time, the patient was made comfort measures and she was extubated. The Palliative Care did see her as well. The patient did pass on the morning of January 10 at 0948. RUDDY MOSLEY MD LAW/modl /[id number] d: 01/11/17 0115 t: 01/18/171948, DISCHARGE SUMMARY
--- NOTE | ~2017-01-09 | CON ---
PATIENT'S NAME: JOE DAVE [facility] AGE: 76 Y [address] ROOM: [place] [address] LOCATION: GICU ADMIT DATE: 01/09/2017 Consultation DISCHARGE DATE: FAMILY PHYSICIAN: Anita Valle MD ATTENDING PHYSICIAN: JADON LONGO DATE OF CONSULTATION: 01/09/2017 NEUROLOGY CONSULTATION CHIEF COMPLAINT: Large left-sided intraparenchymal hemorrhage, significant mass effect and midline shift. HISTORY OF PRESENT ILLNESS: The patient is an unfortunate 76-year-old female patient, who is on aspirin and Plavix, was found unresponsive by her family earlier today. She was taken to the Emergency in [place] where she was stabilized and intubated. Later on, a noncontrast CT head was obtained that showed a very large left-sided intraparenchymal hemorrhage with significant mass effect and midline shift and herniation. Dr. Jadon Longo, hospitalist here was contacted. He accepted transferring the patient over. He then contacted me and I reviewed the images. I recommended controlling the blood pressure and administering 1 g/kg mannitol given the significant mass effect. I saw the patient in the emergency. She was intubated and ventilated. She was given a small dose of lorazepam an hour before my assessment. The rest of the history was limited. PAST MEDICAL AND SURGICAL HISTORY: 1. Acute encephalopathy. 2. Hypertension. 3. Cerebrovascular disease. 4. Herpes zoster. 5. Diabetes. 6. Coronary artery disease. 7. Hypothyroidism. 8. Hypertriglyceridemia. 9. Diabetic neuropathy. MEDICATIONS: Listed in the patient's chart. Essentially, the patient is on aspirin and Plavix. ALLERGIES: PATIENT'S NAME: JOE DAVE [facility] AGE: 76 Y [address] ROOM: [place] [address] LOCATION: GICU ADMIT DATE: 01/09/2017 Consultation DISCHARGE DATE: FAMILY PHYSICIAN: Anita Valle MD ATTENDING PHYSICIAN: JADON LONGO LISTED IN THE PATIENT'S CHART. REVIEW OF SYSTEMS: Unobtainable given the patient's level of consciousness. SOCIAL HISTORY: Unobtainable given the patient's level of consciousness. FAMILY HISTORY: Unobtainable given the patient's level of consciousness. PHYSICAL EXAMINATION: GENERAL: The patient is intubated and ventilated. VITAL SIGNS: Systolic blood pressure is over 200. HEENT: Head; atraumatic. Eyes; sclerae examination is normal. NEUROLOGIC: Her GCS was 3T. Pupils are 5 mm and nonreactive to light. She has negative corneal reflexes bilaterally. She has a very weak gag reflex. She has no motor response to painful stimulation on the upper extremities. She has flicker movements to painful stimulation on the lower extremities. RESPIRATORY: She is intubated and ventilated. CARDIOVASCULAR: She has palpable pulses on the upper extremities. INVESTIGATIONS: A noncontrast CT head done at 0905 hours at [facility] which I personally reviewed. It showed evidence of a massive left-sided intracerebral hemorrhage involving the frontoparietal lobes and extending into the left basal ganglia. It is associated with significant midline shift of over 2 cm. It also showed evidence of central and uncal herniation as well as entrapment of the lateral ventricles. IMPRESSION AND PLAN: A 76-year-old female patient, who is known to have hypertension, coronary artery disease, and other medical disorders was found unresponsive earlier today. Has a very large left-sided intraparenchymal hemorrhage with significant mass effect and midline shift. Her neurological examination is very poor. She has fixed dilated pupils and minimal motor response to painful stimulation. I discussed the neurological examination findings and the imaging findings with the patient's (Robb) on the phone. I clearly indicated that his has suffered a very large intraparenchymal hemorrhage and her neurological examination is very poor. Given the poor neurological examination and the imaging findings, I recommended comfort care measures to be initiated. I clearly indicated that her situation is dismal. The was agreeable with my plan. He asked for ventilatory support and medical PATIENT'S NAME: JOE DAVE [facility] AGE: 76 Y [address] ROOM: [address] [address] LOCATION: [facility] ADMIT DATE: 01/09/2017 Consultation DISCHARGE DATE: FAMILY PHYSICIAN: Anita Valle MD ATTENDING PHYSICIAN: JADON LONGO support to be continued until they arrive from [place] to see the patient. I agreed with that. I also discussed the issue of do not resuscitate code status. I clearly indicated that the patient is at risk of cardiorespiratory arrest at any time. He agreed to change the code status to DNR. I agreed with that. The patient's asked appropriate questions, and all those questions were answered to his satisfaction. I then discussed my recommendations and my discussion with the with Dr. Tolbert and Dr. Longo in the emergency both agreed with that. The patient will be transferred to the ICU for now and full medical support will be continued until the family arrives. Afterward, we will proceed with comfort care measures. It was pleasure taking care of this patient and thanks for having us involved. MD YADIRA BRASWELL/modl /[id number] CC: MD Jadon James MD d: 01/09/17 1625 t: 01/12/17 1123, CONSULTATION REPORT
--- NOTE | ~2017-01-09 | CON ---
PATIENT'S NAME: JOE DAVE [facility] AGE: 76 Y [address] ROOM: [id number] [place] [id number] LOCATION: GICU ADMIT DATE: 01/09/2017 Consultation DISCHARGE DATE: 01/10/2017 FAMILY PHYSICIAN: Anita Valle MD ATTENDING PHYSICIAN: Jadon Longo DATE OF CONSULTATION: 01/09/2017 REFERRING PHYSICIAN: Jadon Longo MD LOCATION: ICU. REASON FOR CONSULTATION: This is a palliative care referral for goals of care and patient and family support. HISTORY OF PRESENT ILLNESS: This 76-year-old female was admitted through the ER on 01/09. She was transferred from the [facility]. She was found unresponsive in the morning by her , was taken to the hospital in [place], was vomiting and having agonal breathing, and was intubated. [place] Coma Score was 3. CT at that time revealed a large intracranial hemorrhage. She was transferred by flight to [facility] for higher level of care. She was seen by Dr. Harmon, neurosurgeon, and he recommended no surgery and comfort cares due to the size of the intracranial hemorrhage and the patient being down undetermined amount of time. The patient has a history of a recent hospitalization for presumed non-STEMI and TIAs, was started on aspirin and Plavix on discharge. She also had a shingles outbreak on her lower back. The patient currently is ventilated, unresponsive. PAST MEDICAL HISTORY: Coronary artery disease; herpes zoster; diabetes mellitus, type 2; hyperlipidemia; essential hypertension; hypothyroidism; and diabetic neuropathy. PAST SURGICAL HISTORY: Hysterectomy in June for stage I endometrial cancer, right knee replacement. FAMILY HISTORY: Mother: Diabetes, hypertension, hypercholesterolemia, and CVA. Father is healthy. One sister of heart disease. Another sister is healthy. PATIENT'S NAME: JOE DAVE [facility] AGE: 76 Y [address] ROOM: [id number] [place] [id number] LOCATION: GICU ADMIT DATE: 01/09/2017 Consultation DISCHARGE DATE: 01/10/2017 FAMILY PHYSICIAN: Anita Valle MD ATTENDING PHYSICIAN: Jadon Longo MEDICATIONS: For home medications and current medications, see MAR. REVIEW OF SYSTEMS: A complete review of systems was done and is negative except as mentioned in the HPI. PHYSICAL EXAMINATION: GENERAL: This is an unresponsive female, vented, in no acute distress. Unresponsive, nonsedated, vented. VITAL SIGNS: Temperature 98.0, pulse 70, respirations 12, blood pressure 165/59, and O2 saturation is 100% on 30% FiO2. She is 5 feet 5 inches and weighs 193 pounds with a BMI of 32.1. SKIN: Warm and dry. Color pale. HEENT: Head is normocephalic and atraumatic. Sclerae are nonicteric. Conjunctivae are pale, pink. Mouth is dry. EG tube in place. No exudate. LYMPHATIC: No cervical adenopathy or thyromegaly. RESPIRATORY: Respirations are even and regular. Clear to auscultation. ABDOMEN: Soft and nondistended. Hypo bowel tones. No hepatosplenomegaly. NEUROLOGIC: Unresponsive. Pupils fixed, nonreactive, 7 mm. Some extension in lower and upper extremities, and withdraws to painful stimuli in lower extremities. Nonsedated. MUSCULOSKELETAL: Palliative Performance Scale is 10%, totally bed-bound, unable to do any activity, total care, mouth care only, and level of consciousness is coma. IMPRESSION: 1. Mental status change. 2. Respiratory distress. PLAN: 1. Met with the patient, family, , son Alex and his Niurka, son Noemi and his , and the patient's sister Veronica and a niece. Dr. Harmon was up and discussed condition and prognosis with family. Reviewed MRI with family with large intracranial bleed, poor prognosis. The patient may never speak again. Overall, poor outcome. Discussed more with family the patient's values and goals: Family would like to withdraw from the ventilator and just keep the patient comfortable. 2. Discussed process of ventilation withdrawal and comfort cares. Family will decide on what home after discussing amongst themselves. They will discuss if they want to wait for other family members to get here from out of town or if they just want to start the withdrawal procedure. They will go get something to eat and have a family discussion. Answered questions and concerns. 3. Spiritual: Pastoral Care has been up and visiting with them. No other PATIENT'S NAME: JOE DAVE [facility] AGE: 76 Y [address] ROOM: [id number] [place], [place] [address] LOCATION: GICU ADMIT DATE: 01/09/2017 Consultation DISCHARGE DATE: 01/10/2017 FAMILY PHYSICIAN: Anita Valle MD ATTENDING PHYSICIAN: Jadon Longo spiritual needs. 4. Code status and advance directive. The patient is a do not resuscitate. We will continue to support the patient and family through process. Gave Final Journeys book and Crossing the Bridge booklet to family members and explained process. Total time was 75 minutes with 65 minutes for counseling and coordination of care; answering questions; and education on comfort cares, disease process, and current condition. Thank you for allowing me to assist this patient and family. CLAUS NAJERA GEAR REPAIRER FOR MD SHIV PERERA/kody /[id number] d: 01/10/17 1901 t: 01/29/17 1336, CONSULTATION REPORT
--- NOTE | ~2017-01-09 | ER ---
PATIENT'S NAME: JOE DAVE [facility] AGE: 76 Y [address] ROOM: [place] [address] LOCATION: GICU ADMIT DATE: 01/09/2017 ER/Outpatient Report DISCHARGE DATE: FAMILY PHYSICIAN: Anita Valle MD ATTENDING PHYSICIAN: LISSET RAGSDALE CHIEF COMPLAINT: Intracranial hemorrhage. HISTORY OF PRESENT ILLNESS: Ms Dave arrives by air ambulance from [place], [place]. By report, she was last known normal at 3:30 this morning. She was found to be unresponsive this morning by her , taken to a local hospital where she vomited and was intubated for a reported GCS of 3. CT at that time revealed a large intracranial hemorrhage. She was transferred here for higher level of care. All available history indicates that she is full code. She has been hypertensive initially, but does have improved after intubation. Images were post and have been reviewed by Dr. Harmon to arrival. The patient was accepted initially by hospitalist, but changes in the presentation required evaluation in the emergency department prior to admission to the hospital. She has a history of recent hospitalization here for presumed NSTEMI and received no intervention secondary to shingles outbreak. She ultimately was started on aspirin and Plavix and discharge. No known falls. PAST MEDICAL HISTORY: Documented on the record and reviewed by me. SOCIAL HISTORY: Documented on the record and reviewed by me. MEDICATIONS: Documented on the record and reviewed by me. ALLERGIES: DOCUMENTED ON THE RECORD AND REVIEWED BY ME. REVIEW OF SYSTEMS: All systems reviewed and negative except as noted in the HPI. PHYSICAL EXAMINATION: VITAL SIGNS: Blood pressure initially 217/69, downtrends to 160s/70s. Pulse is 80, respiratory rate is 12, ventilated, temp 96.6, SpO2 is 100% on the vent. GENERAL: Elderly female, recumbent on exam table, intubated. NEURO: The patient has no corneal reflexes, fixed pupils, nondilated 4 mm PATIENT'S NAME: JOE DAVE [facility] AGE: 76 Y [address] ROOM: [place] [address] LOCATION: GICU ADMIT DATE: 01/09/2017 ER/Outpatient Report DISCHARGE DATE: FAMILY PHYSICIAN: Anita Valle MD ATTENDING PHYSICIAN: LISSET RAGSDALE bilateral. The oropharynx is intubated with OG. There is no gag. The patient does not have corneal reflexes. She has a twitching of the left upper eyelid regardless of stimulation. She has flexion of the lower extremities to the pain. No movement of the upper extremities to pain. HEENT: Grossly normocephalic and atraumatic. Eyes as noted above. No extraocular movements. Nonreactive to light. The oropharynx is intubated. No obvious bleeding. NECK: Otherwise supple. CHEST: Bilateral breath sounds present. Ventilated patient. HEART: Regular rate and rhythm with no obvious murmurs. LUNGS: Grossly clear to auscultation bilateral. ABDOMEN: Soft, nontender, and nondistended. No rebound or guarding. EXTREMITIES: Warm and well perfused. SKIN: Appears to be grossly intact. BACK: Not visualized. LABS AND X-RAYS: None were obtained here. Images and labs from prior to arrival were reviewed. IMPRESSION: Catastrophic left intraparenchymal hemorrhage with herniation. EMERGENCY DEPARTMENT COURSE: The patient was seen and evaluated at bedside. She was also evaluated by hospitalist and neurosurgeon. She will be admitted to the ICU under the care of the Hospitalist Service for preservation of life and end of life cares. Dr. Harmon, neurosurgeon, did discuss the case with the family via phone and we will attempt to keep her alive until they can come here and pay their final respects. Anticipate this patient will pass soon. The patient was officially made DNR per Dr. Harmon's phone call, as he related to me. MD ALEC ANGELES/kody /[id number] d: 01/09/171928 t: 01/15/17 0640, OUTPATIENT REPORT
[2017-01-09 14:41] LABS: BASOPHIL % 0.3 %; EOSINOPHIL % 0.2 %; HEMATOCRIT 43.1 % (33.0-46.0); HEMOGLOBIN 15.5 g/dL (10.0-15.0); IMMATURE GRANULOCYTE % 0.3 %; LYMPHOCYTE # 0.9 K/uL (0.8-4.0); LYMPHOCYTE % 8.7 %; MCH 31.8 pg (27.0-34.0); MCV 88.3 fl (83.0-98.0); MONOCYTE # 0.8 K/uL (0.0-1.0); MONOCYTE % 7.3 %; MPV 10.8 fl (9.4-12.4); NEUTROPHIL # (ANC) 8.7 K/uL (1.8-7.8); NEUTROPHIL % 83.2 %; NRBC % 0 /100WBC (0-0.00); PLATELET COUNT 166 K/uL (150-450); RBC 4.88 M/uL (3.50-5.50); RDW-CV 12.8 % (11.9-14.6); WBC 10.4 K/uL (4.0-11.0)
[2017-01-09 15:02] LABS: ALBUMIN 3.2 gm/dL (3.5-5.0); ANION GAP 14.6 (10.0-19.0); CREATININE 0.9 mg/dL (0.5-1.1); POTASSIUM 3.6 mMol/L (3.7-5.1); TOTAL BILIRUBIN 0.5 mg/dL (0.0-1.5); TOTAL PROTEIN 6.8 g/dL (6.0-8.4)
== END 2017-01-10 09:48 | disposition expired | DRG 64 ==
LOC: GMED 10:33 → GICU 10:59
PROVIDERS: ADMIT Internal Medicine
PROC: 5A1945Z Respiratory Ventilation, 24-96 Consecutive Hours (ICD-10-PCS; principal; 2017-01-09)
DX: I61.8 Other nontraumatic intracerebral hemorrhage (principal); I21.4 Non-ST elevation (NSTEMI) myocardial infarction; R09.2 Respiratory arrest; I16.1 Hypertensive emergency; I69.351 Hemiplegia and hemiparesis following cerebral infarction affecting right dominant side; I25.10 Atherosclerotic heart disease of native coronary artery without angina pectoris; I10 Essential (primary) hypertension; Z51.5 Encounter for palliative care; E78.5 Hyperlipidemia, unspecified; E11.42 Type 2 diabetes mellitus with diabetic polyneuropathy; Z79.84 Long term (current) use of oral hypoglycemic drugs; Z87.891 Personal history of nicotine dependence; Z79.01 Long term (current) use of anticoagulants; Z79.82 Long term (current) use of aspirin; Z66 Do not resuscitate; R40.20 Unspecified coma; Z85.42 Personal history of malignant neoplasm of other parts of uterus; Z96.651 Presence of right artificial knee joint
CPT/HCPCS: J2060; J2270; J7050

== ENCOUNTER → 2017-01-09 | Outpatient (CLI) | payer MEDICARE, BC ==
[~2017-01-09] MED LIST: AMARYL4 MG PO; ASPIRIN LO-DOSE81 MG PO; COLACE100 MG PO; GLUCOPHAGE XR500 M1 PO; HYZAAR 50-12.51 EACH PO; JARDIANCE25 MG PO; LEVOTHROID (S150 MCG PO; LIPITOR40 MG PO; LOPRESSOR25 MG PO; LOSARTAN-HCTZ1 EAC2 PO; MIRALAX17 GM PO; NEURONTIN100 MG PO; NORVASC5 MG PO; PLAVIX75 MG PO; PRAVACHOL80 MG PO; TYLENOL ARTHRI650 MG PO; VALTREX1000 MG PO
== END | disposition disaster alternative care site (69) ==
LOC: GAIR 10:06
DX: R40.20 Unspecified coma (principal); E11.40 Type 2 diabetes mellitus with diabetic neuropathy, unspecified; E78.5 Hyperlipidemia, unspecified; E03.9 Hypothyroidism, unspecified; I63.9 Cerebral infarction, unspecified; I10 Essential (primary) hypertension; R06.83 Snoring; Z86.79 Personal history of other diseases of the circulatory system; Z79.82 Long term (current) use of aspirin; Z79.899 Other long term (current) drug therapy
CPT/HCPCS: A0422; A0431; A0436; J2250; J3010